=== PATIENT | female | born 1970 | race Caucasian/White ===

== ENCOUNTER 2020-02-11 18:08 | Emergency (ER) | payer MEDICAID, OTHER ==
[~2020-02-11] VITALS: Ht 167.7 cm; Wt 47.2 kg
--- OUTSIDE RECORDS SUMMARY | 2020-02-11 18:14 | XMS REPORT | Continuity of Care Document ---
Author Organization Unknown Address Unknown Phone Unavailable Allergies Active Description Code Type Severity Reaction Onset Reported/Identified Relationship to Patient Clinical Status Yes aspirin Drug Allergy N/A N/A 09/13/2010 Yes codeine Drug Allergy N/A N/A 09/13/2010 Medications There is no data. 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 Encounters ACCT No. Visit Date/Time Discharge Status Pt. Type Provider Facility Loc./Unit Complaint [id number] 07/12/2013 14:36:00 07/12/2013 23:59: 59 CLS Outpatient ELLIE DEVLIN DO
--- OUTSIDE RECORDS SUMMARY | 2020-02-11 18:14 | XMS REPORT ---
Author Author Jade Garcia Doctor Organization [facility] Address Unknown Phone Unavailable Care Team Providers Care Gas Plant Worker Name Role Phone Migration, Doctor Unavailable Unavailable PROBLEMS Type Condition ICD9-CM Code [id number] Code Onset Dates Condition S tatus SNOMED Code Problem Urinary tract infection, site not specified 599.0 Active [id number] ALLERGIES No Information ENCOUNTERS Encounter Location Date Diagnosis [facility] [address] [id number] [address] [place] [phone] Jan, [facility] [address] [id number] [address] [place] [phone] Jan, [facility] [address] [id number] [address] [place] [phone] Sep, [facility] [address] [id number] [address] [place] [phone] Sep, [facility] [address] [id number] [address] [place] [phone] Jul, [facility] [address] [id number] [address] [place] [phone] February, [facility] [address] [id number] [address] [place] [phone] Sep, [facility] [address] [id number] [address] [place] [phone] Sep, IMMUNIZATIONS No Known Immunizations SOCIAL HISTORY Never Assessed REASON FOR VISIT EMR-[facility] PLAN OF CARE VITAL SIGNS MEDICATIONS Medication Instructions Dosage Frequency Start Date End Date Duration S tatus Bactrim DS 800-160 mg 1 tablet by Oral route 2 times p er day for 7 day(s) Jul, Active RESULTS No Results PROCEDURES No Known procedures INSTRUCTIONS MEDICATIONS ADMINISTERED No Known Medications
--- OUTSIDE RECORDS SUMMARY | 2020-02-11 18:14 | XMS REPORT ---
Author Author Jade WEINBERG Organization [facility] Address [address] [place] [address] Care Team Providers Care Dough Maker Name Role Phone RICCI WEINBERG Unavailable PROBLEMS Type Condition ICD9-CM Code [id number] Code Onset Dates Condition S tatus SNOMED Code Problem Urinary tract infection, site not specified 599.0 Active [id number] ALLERGIES No Information ENCOUNTERS Encounter Location Date Diagnosis [facility] [address] [id number] [address] [place] [phone] Jan, [facility] [address] [id number] [address] [place] [phone] Jan, [facility] [address] [id number] [address] [place] [phone] Sep, [facility] [address] [id number] [address] [place] [phone] Sep, [facility] [address] [id number] [address] [place] [phone] Jul, [facility] [address] [id number] [address] [place] [phone] February, [facility] [address] [id number] [address] [place] [phone] Sep, [facility] [address] [id number] [address] [place] [phone] Sep, IMMUNIZATIONS No Known Immunizations SOCIAL HISTORY Never Assessed REASON FOR VISIT PLAN OF CARE VITAL SIGNS MEDICATIONS Unknown Medications RESULTS No Results PROCEDURES No Known procedures INSTRUCTIONS MEDICATIONS ADMINISTERED No Known Medications
--- OUTSIDE RECORDS SUMMARY | 2020-02-11 18:14 | XMS REPORT ---
Author Author Jade Garcia Doctor Organization [facility] Address Unknown Phone Unavailable Care Team Providers Care Vp Sales Name Role Phone Migration, Doctor Unavailable Unavailable PROBLEMS Type Condition ICD9-CM Code [id number] Code Onset Dates Condition S tatus SNOMED Code Problem Urinary tract infection, site not specified 599.0 Active [id number] ALLERGIES No Information ENCOUNTERS Encounter Location Date Diagnosis [facility] [address] [id number] [address] [place] [phone] Jan, [facility] [address] [id number] [address] [place] [phone] Jan, [facility] [address] [id number] [address] [place] [phone] Sep, [facility] [address] [id number] [address] [place] [phone] Sep, [facility] [address] [id number] [address] [place] [phone] Jul, [facility] [address] [id number] [address] [place] [phone] February, [facility] [address] [id number] [address] [place] [phone] Sep, [facility] [address] [id number] [address] [place] [phone] Sep, IMMUNIZATIONS No Known Immunizations SOCIAL HISTORY Never Assessed REASON FOR VISIT [facility]-[facility] PLAN OF CARE VITAL SIGNS MEDICATIONS Unknown Medications RESULTS No Results PROCEDURES No Known procedures INSTRUCTIONS MEDICATIONS ADMINISTERED No Known Medications
[2020-02-11] MEDS ORDERED: cefTRIAXone FOR IV USE 1,000 MG in WATER (STERILE) FOR INJECTION 10 ML IV ONE (18:45)
--- NOTE | 2020-02-11 18:52 | ED Lower Extremity ---
General Chief Complaint: Lower Extremity Stated Complaint: BILAT LEG SWELLING/L LEG DRAINAGE Nursing Triage Note: PT AMB TO [facility] 8 WITH COMPLAINT OF WOUND ON LOWER LEFT LEG. STATES STARTED December. DOES NOT KNOW WHAT CAUSED WOUND. Nursing Sepsis Screen: No Definite Risk Source: patient, family Exam Limitations: no limitations History of Present Illness Date Seen by Provider: February 11, 2020 Time Seen by Provider: 18:25 Initial Comments The patient presents to ER by private conveyance from home with her nephew and chief complaint of a chronic worsening wound on her left lower extremity anteriorly. She says a couple years ago she got to bite that healed up to 2 small scars on that area and since December 12 the wounds have opened up and been draining progressively worsening since then. She has some area of redness warmth and tenderness around him but the wound itself does not hurt terribly. She has severe debilitating anxiety disorders including OCD and has not seen a doctor or healthcare system in over 20 years. She has not been out of her house and 2 years. She has no history of blood clots chest pain shortness of air. She does not take any medications, herbal or [id number]. She's been using water and toilet paper to clean the wound. She denies any fevers or chills. She does not feel like it was getting any better. She has concerns that if her family takes her to appointments or knows when her appointments are and they might go through her house and she does not want anybody in her house. She does not want home health. She says she would however participate with wound care if we can help arrange transportation. She lives in [place]. Patient has declined consent for us to speak with her family. Allergies and Home Medications Allergies Coded Allergies: aspirin (Verified Allergy, Unknown, 02/11/20) camphor (Verified Allergy, Unknown, 02/11/20) codeine (Verified Allergy, Unknown, 02/11/20) eucalyptus (Verified Allergy, Unknown, 02/11/20) hydrocodone (Verified Allergy, Unknown, 02/11/20) menthol (Verified Allergy, Unknown, 02/11/20) petrolatum,white (Verified Allergy, Unknown, 02/11/20) tramadol (Verified Allergy, Unknown, 02/11/20) turpentine oil (Verified Allergy, Unknown, 02/11/20) Home Medications Sulfamethoxazole/Trimethoprim 1 Each Tablet, 1 EACH PO BID Prescribed by: FROY RANDLE on 02/11/20 9937 Patient Home Medication List Home Medication List Reviewed: Yes Review of Systems Constitutional: No chills, No diaphoresis EENTM: No hearing loss, No ear pain Respiratory: No cough, No phlegm Cardiovascular: No chest pain, No edema Gastrointestinal: No abdominal pain, No constipation, No diarrhea, No nausea Genitourinary: No discharge, No dysuria Musculoskeletal: No back pain, No joint pain Skin: see HPI Psychiatric/Neurological: See HPI, Anxiety All Other Systems Reviewed Negative Unless Noted: Yes Past Kmbrijl-Gqgsgk-Snwkwj Hx Patient Social History Alcohol Use: Denies Use Recreational Drug Use: No Smoking Status: Never a Smoker Recent Foreign Travel: No Contact w/Someone Who Travel: No Recent Infectious Disease Expo: No Recent Hopitalizations: No Immunizations Up To Date Tetanus Booster (TDap): More than 5yrs Seasonal Allergies Seasonal Allergies: No Past Medical History Surgeries: No Respiratory: No Cardiac: Yes Heart Murmur Neurological: No Genitourinary: No Gastrointestinal: No Musculoskeletal: No Endocrine: No HEENT: No Cancer: No Psychosocial: Yes (OCD) Integumentary: No Physical Exam Vital Signs Vital Signs - First Documented 02/11/20 18:21 Temp 36.9 Pulse 113 Resp 20 B/P (MAP) 154/94 (114) Pulse Ox 95 O2 Delivery Room Air Capillary Refill : Less Than 3 Seconds Height, Weight, BMI Height: '" Weight: lbs. oz. kg; 16.00 BMI Method: General Appearance: WD/WN, no apparent distress HEENT: PERRL/EOMI, pharynx normal Neck: full range of motion, normal inspection Cardiovascular: normal peripheral pulses, regular rate, rhythm, tachycardia (110) Respiratory: no respiratory distress, no accessory muscle use Neurologic/Psychiatric: no motor/sensory deficits, alert, oriented x 3, other (anxious affect) Skin: other (unstageable wounds on her distal anterior left trevino with serous and some mild exudative discharge. Area is approximately 3 x 4 cm. Mild area of nonindurated, nontender erythematous, blanching cellulitis approximately 6 cm diameter surrounding the area.) Progress/Results/Core Measures Results/Orders Lab Results Laboratory Tests Test 02/11/20 19:05 Range/Units White Blood Count 7.5 4.3-11.0 10^3/uL Red Blood Count 4.16 L 4.35-5.85 10^6/uL Hemoglobin 12.9 11.5-16.0 G/DL Hematocrit 39 35-52 % Mean Corpuscular Volume 94 80-99 FL Mean Corpuscular Hemoglobin 31 25-34 PG Mean Corpuscular Hemoglobin Concent 33 32-36 G/DL Red Cell Distribution Width 12.7 10.0-14.5 % Platelet Count 233 130-400 10^3/uL Mean Platelet Volume 10.5 H 7.4-10.4 FL Neutrophils (%) (Auto) 73 42-75 % Lymphocytes (%) (Auto) 17 12-44 % Monocytes (%) (Auto) 10 0-12 % Eosinophils (%) (Auto) 0 0-10 % Basophils (%) (Auto) 0 0-10 % Neutrophils # (Auto) 5.4 1.8-7.8 X 10^3 Lymphocytes # (Auto) 1.3 1.0-4.0 X 10^3 Monocytes # (Auto) 0.7 0.0-1.0 X 10^3 Eosinophils # (Auto) 0.0 0.0-0.3 10^3/uL Basophils # (Auto) 0.0 0.0-0.1 10^3/uL Sodium Level 143 135-145 MMOL/L Potassium Level 3.7 3.6-5.0 MMOL/L Chloride Level 107 98-107 MMOL/L Carbon Dioxide Level 23 21-32 MMOL/L Anion Gap 13 5-14 MMOL/L Blood Urea Nitrogen 15 7-18 MG/DL Creatinine 1.10 0.60-1.30 MG/DL Estimat Glomerular Filtration Rate 53 BUN/Creatinine Ratio 14 Glucose Level 96 70-105 MG/DL Calcium Level 9.4 8.5-10.1 MG/DL Corrected Calcium 9.3 8.5-10.1 MG/DL Total Bilirubin 0.4 0.1-1.0 MG/DL Aspartate Amino Transf (AST/SGOT) 23 5-34 U/L Alanine Aminotransferase (ALT/SGPT) 14 0-55 U/L Alkaline Phosphatase 88 40-136 U/L Total Protein 7.3 6.4-8.2 GM/DL Albumin 4.1 3.2-4.5 GM/DL My Orders Orders - FROY RANDLE Cbc With Automated Diff (02/11/20 18:34) Comprehensive Metabolic Panel (02/11/20 18:34) Ceftriaxone For Iv Use (Rocephin For I (02/11/20 18:45) Tibia/Fibula, Left, 2 Views (02/11/20 18:34) Medications Given in ED Current Medications Medications Dose Ordered Sig/Edna Route Start Time Stop Time Status Last Admin Dose Admin Ceftriaxone Sodium 1000 mg/ Sterile Water 10 ml @ 200 mls/hr ONCE ONCE IV 02/11/20 18:45 02/11/20 18:47 DC 02/11/20 19:34 200 MLS/HR Vital Signs/I&O 02/11/20 18:21 Temp 36.9 Pulse 113 Resp 20 B/P (MAP) 154/94 (114) Pulse Ox 95 O2 Delivery Room Air Blood Pressure Mean: 114 Progress Progress Note #1: Time: 18:51 Progress Note The patient's tachycardia could be related to anxiety. She is afebrile otherwise aseptic. Plan to get some basic labs. She has declined to do a urinalysis. We would probably give her a dose of Rocephin IV now and put her on Bactrim which would cover for potential UTI. She has agreed to follow-up with wound care and we have discussed the case with warehouse delivery driver who is going to leave note for social service assistant team to reach out to her on Thursday to help facilitate her establishing care with wound care outpatient. Because the wound is been going on for 2 months and has previously been going on for a few years plan to get an x- ray of her tibia/fibula looking for erosive osteomyelitis signs. Progress Note #2: Time: 19:42 Progress Note Patient's blood work looks fine. X-ray unremarkable. Plan to put her on Bactrim which would also cover for potential UTI. She says she's had some urinary frequency and thinks she might have a bladder infection but refuses to give a sample because she does not want to use a public bathroom. Diagnostic Imaging Diagonstic Imaging: Xray Plain Films/CT/US/NM/MRI: leg (left tib-fib) Comments No acute osseous abnormalities. NAME: JESICA CHANCEDominic Licea MED REC#: [id number] PT STATUS: [place] ER : 1970 PHYSICIAN: FROY RANDLE MD ADMIT DATE: 02/11/20/ER Draft Date of Exam:02/11/20 TIBIA/FIBULA, LEFT, 2 VIEWS INDICATION: Soft tissue wound and swelling in the left lower leg. COMPARISON: None available. TECHNIQUE: AP and lateral views of the left tibia and fibula were obtained. FINDINGS: Femoral irregularity along the medial aspect of the distal one-third of the lower leg likely corresponds to patient's reported wound. There is no associated soft tissue gas or radiopaque foreign body. No periosteal reaction or osseous erosion. No fracture. Subcutaneous reticulations are likely due to edema and/or cellulitis. IMPRESSION: No radiographic confirmation of osteomyelitis. Dictated on workstation # [id number] Dict: 02/11/201927 Trans: 02/11/201950 PJE [id number] Interpreted by: EDYTA PASTOR MD Electronically signed by: Reviewed: Reviewed by Me Departure Impression Primary Impression: Wound, open, leg Qualified Codes: S81.802A - Unspecified open wound, left lower leg, initial encounter Disposition: HOME, SELF-CARE Condition: Stable Departure-Patient Inst. Decision time for Depature: 19:42 Referrals: MARIEL SHARMA MD NO,LOCAL PHYSICIAN (PCP) Primary Care Physician Patient Instructions: Wound Care (DC) Add. Discharge Instructions: Keep the wound clean with soap and water. Apply a moistened gauze and then wrap with dry gauze and tape. Change the dressing daily or more frequently if it becomes soiled. Return to the ER if you develop fever, chest pain or other worrisome symptoms. Thursday morning please call wound care at the above phone number. Get an appointment to follow-up with wound care in the clinic and also talk to them about help with setting up transportation. [employer] can help with transportation and you can reach them directly at [phone]. The local [employer] transportation van can be reached at [phone]. Take Bactrim one tablet with food twice a day for the next 10 days. All discharge instructions reviewed with patient and/or family. Voiced understanding. Scripts Sulfamethoxazole/Trimethoprim (Bactrim Ds Tablet) 1 Each Tablet 1 EACH PO BID for 10 Days, #20 TAB 0 Refills Prov: FROY RANDLE 02/11/20 FROY RANDLE February 11, 2020 18:52
[2020-02-11] MEDS ORDERED: SULF1TAB35 PO (18:57)
[2020-02-11 19:20] LABS: BASOPHILS % (AUTO) 0 % (0-10); EOSINOPHILS % (AUTO) 0 % (0-10); HEMATOCRIT 39 % (35-52); HEMOGLOBIN 12.9 G/DL (11.5-16.0); LYMPHOCYTES # (AUTO) 1.3 X 10^3 (1.0-4.0); LYMPHOCYTES % (AUTO) 17 % (12-44); MEAN CORPUSCULAR HEMOGLOBIN 31 PG (25-34); MEAN CORPUSCULAR HGB CONC 33 G/DL (32-36); MEAN CORPUSCULAR VOLUME 94 FL (80-99); MEAN PLATELET VOLUME 10.5 FL (7.4-10.4); MONOCYTES # (AUTO) 0.7 X 10^3 (0.0-1.0); MONOCYTES % (AUTO) 10 % (0-12); NEUTROPHILS # (AUTO) 5.4 X 10^3 (1.8-7.8); NEUTROPHILS % (AUTO) 73 % (42-75); PLATELET COUNT 233 10^3/uL (130-400); RED CELL DISTRIBUTION WIDTH 12.7 % (10.0-14.5); WHITE BLOOD COUNT 7.5 10^3/uL (4.3-11.0)
[2020-02-11 19:38] LABS: ALBUMIN 4.1 GM/DL (3.2-4.5); BILIRUBIN,TOTAL 0.4 MG/DL (0.1-1.0); CALCIUM 9.4 MG/DL (8.5-10.1); CREATININE SERUM 1.1 MG/DL (0.60-1.30); POTASSIUM 3.7 MMOL/L (3.6-5.0); TOTAL PROTEIN 7.3 GM/DL (6.4-8.2)
--- NOTE | 2020-02-11 19:52 | Diagnostic Imaging Report ---
INDICATION: Soft tissue wound and swelling in the left lower leg. COMPARISON: None available. TECHNIQUE: AP and lateral views of the left tibia and fibula were obtained. FINDINGS: Femoral irregularity along the medial aspect of the distal one-third of the lower leg likely corresponds to patient's reported wound. There is no associated soft tissue gas or radiopaque foreign body. No periosteal reaction or osseous erosion. No fracture. Subcutaneous reticulations are likely due to edema and/or cellulitis. IMPRESSION: No radiographic confirmation of osteomyelitis. Dictated by: Dictated on workstation # [id number]
[2020-02-11 20:04] VITALS: BP 154/94
== END 2020-02-11 20:03 | disposition home or self-care (01) ==
LOC: EDUNIT# 18:08 → ER 18:10
DX: S81.802A Unspecified open wound, left lower leg, initial encounter (principal); Z88.6 Allergy status to analgesic agent; Z88.5 Allergy status to narcotic agent; Z88.8 Allergy status to other drugs, medicaments and biological substances; X58.XXXA Exposure to other specified factors, initial encounter
CPT/HCPCS: 36415; 73590; 80053; 85025

== ENCOUNTER → 2020-04-04 | Outpatient (CLI) | payer MEDICAID ==
[~2020-04-04] MED LIST: SULF1TAB35 PO
[2020-04-04 16:32] LABS: BASOPHILS % (AUTO) 1 % (0-10); EOSINOPHILS # (AUTO) 0.1 10^3/uL (0.0-0.3); EOSINOPHILS % (AUTO) 1 % (0-10); HEMATOCRIT 39 % (35-52); HEMOGLOBIN 12.7 G/DL (11.5-16.0); LYMPHOCYTES # (AUTO) 1.7 X 10^3 (1.0-4.0); LYMPHOCYTES % (AUTO) 22 % (12-44); MEAN CORPUSCULAR HEMOGLOBIN 31 PG (25-34); MEAN CORPUSCULAR HGB CONC 32 G/DL (32-36); MEAN CORPUSCULAR VOLUME 96 FL (80-99); MEAN PLATELET VOLUME 10.6 FL (7.4-10.4); MONOCYTES # (AUTO) 0.5 X 10^3 (0.0-1.0); MONOCYTES % (AUTO) 7 % (0-12); NEUTROPHILS # (AUTO) 5.4 X 10^3 (1.8-7.8); NEUTROPHILS % (AUTO) 70 % (42-75); PLATELET COUNT 223 10^3/uL (130-400); RED CELL DISTRIBUTION WIDTH 13.5 % (10.0-14.5); WHITE BLOOD COUNT 7.7 10^3/uL (4.3-11.0)
[2020-04-04 16:41] LABS: ALBUMIN 4.1 GM/DL (3.2-4.5); CHLORIDE 109 MMOL/L (98-107); POTASSIUM 3.8 MMOL/L (3.6-5.0); SODIUM 141 MMOL/L (135-145)
[2020-04-04 16:42] LABS: CALCIUM 9.4 MG/DL (8.5-10.1)
[2020-04-04 16:43] LABS: GLUCOSE 88 MG/DL (70-105); TOTAL PROTEIN 7.4 GM/DL (6.4-8.2)
[2020-04-04 16:45] LABS: BILIRUBIN,TOTAL 0.4 MG/DL (0.1-1.0); CARBON DIOXIDE 26 MMOL/L (21-32)
[2020-04-04 16:47] LABS: ALKALINE PHOSPHATASE 92 U/L (40-136); CREATININE SERUM 0.73 MG/DL (0.60-1.30); GFR ESTIMATED > 60
[2020-04-04 16:48] LABS: BUN/CREATININE RATIO 12
[2020-04-04 16:50] LABS: ALANINE AMINOTRANSFERASE 19 U/L (0-55)
== END ==
LOC: LAB 16:11
PROVIDERS: ATTEND Surgery
DX: I87.332 Chronic venous hypertension (idiopathic) with ulcer and inflammation of left lower extremity (principal); L97.222 Non-pressure chronic ulcer of left calf with fat layer exposed; E44.1 Mild protein-calorie malnutrition; F40.00 Agoraphobia, unspecified
CPT/HCPCS: 36415; 80053; 85025

== ENCOUNTER → 2020-04-04 | Outpatient (CLI) | payer MEDICAID | LOC: WOUNDCARE 13:59 | PROVIDERS: ATTEND Surgery | DX: I87.332 Chronic venous hypertension (idiopathic) with ulcer and inflammation of left lower extremity (principal); L97.222 Non-pressure chronic ulcer of left calf with fat layer exposed; E44.1 Mild protein-calorie malnutrition; F40.00 Agoraphobia, unspecified | CPT/HCPCS: 99214 ==